=== PATIENT | female | born 1970 | race Caucasian/White ===

== ENCOUNTER 2022-11-30 16:11 | Emergency (ER) | payer OTHER ==
[2022-11-30] MEDS ORDERED: PROPOFOL 20 ML ONE (16:53)
[2022-11-30] MEDS ORDERED: Ketamine In 0.9 % NaCl 50 MG/5 ML SYRINGE ONE (17:00)
[2022-11-30] MEDS ORDERED: Morphine 4 MG/ML VIAL ONE (19:21)
== END 2022-11-30 19:47 | disposition home or self-care (01) ==
LOC: ERS 16:11
DX: S52.501A Unspecified fracture of the lower end of right radius, initial encounter for closed fracture (principal); S52.614A Nondisplaced fracture of right ulna styloid process, initial encounter for closed fracture; E10.9 Type 1 diabetes mellitus without complications; E03.9 Hypothyroidism, unspecified; Z79.4 Long term (current) use of insulin; Z79.899 Other long term (current) drug therapy; V80.010A Animal-rider injured by fall from or being thrown from horse in noncollision accident, initial encounter; Y93.52 Activity, horseback riding
CPT/HCPCS: 25565; 96374; J2270; J2704; J3490